=== PATIENT | male | born 1965 | race Caucasian/White ===

== ENCOUNTER 2018-09-23 14:07 | Observation (INO) | payer BC ==
[2018-09-23] VITALS (8 sets, daily range): BP systolic 120–143; BP diastolic 66–85; Ht 185.4 cm; Wt 114.7 kg
[~2018-09-23] VITALS: Ht 185.4 cm; Wt 114.7 kg
--- NOTE | ~2018-09-23 | MORECARE ---
CASE MANAGEMENT DISCHARGE SUMMARY PATIENT: ALONZO JERNIGAN UNIT: [id number] ADM DATE: 09/23/18 AGE: 53 : 65 SEX: M ROOM/BED: D.2116 AUTHOR: MOISÉS WU PHYSICIAN: REFERRING PHYSICIAN: RICKEY ROTHMAN M.D. DATE OF SERVICE: 09/27/18 Discharge Plan Patient Name: ALONZO JERNIGAN Facility: [facility]:[place] : 1965 Planned Disposition: Home Anticipated Discharge Date: 09/24/18 Discharge Date: 09/24/2018 Expected LOS: 1 Initial Reviewer: [email or web address] Initial Review Date: 09/27/2018 Generated: 09/27/18 9:28 am Patient Name: ALONZO JERNIGAN Page 26936 at 0829 All edits/amendments must be made on the electronic document DICTATION DATE: 09/27/18827 ARCHITECTURE INTERNSHIP: JULIANE 09/27/18827 RPT#: [id number] DC DATE:09/24/18 STATUS: DIS IN [facility] [address] [facility] [place] [address] END OF REPORT
[2018-09-23] MEDS ORDERED: NORVASC10 MG PO (14:13)
[2018-09-23] MEDS ORDERED: LEXAPRO10 MG PO (14:14)
[2018-09-23 14:57] LABS: BASOPHILS 0.8 % (0-2); EOSINOPHILS 6.5 % (0-7); HEMATOCRIT 38.5 % (42.0-54.0); HEMOGLOBIN 12.6 g/dL (13.5-17.5); IMMATURE GRANULOCYTES 0.2 % (0-5); LYMPHOCYTES 24.5 % (15-50); MCH 28.4 pg (26.0-34.0); MCHC 32.7 g/dL (31.0-37.0); MCV 86.9 fL (80.0-100.0); MEAN PLATELET VOLUME 10.5 fL (7.4-10.4); MONOCYTES 5.9 % (2-11); NEUTROPHILS 62.1 % (40-80); PLATELET COUNT 240 10x3/uL (130-400); RBC 4.43 10x6/uL (4.20-6.10); WBC 6.4 10x3/uL (4.8-10.8)
[2018-09-23 15:13] LABS: APTT 26.6 SECONDS (22.8-39.4); INR 1.01 (0.85-1.17)
[2018-09-23 15:20] LABS: ALBUMIN 3.6 g/dL (3.4-5.0); ALKALINE PHOSPHATASE 72 U/L (46-116); ALT (SGPT) 58 U/L (10-68); BILIRUBIN - TOTAL 0.23 mg/dL (0.2-1.3); CALC OSMOLALITY 280 mosm/kg (275-300); CALCIUM 8.8 mg/dL (8.5-10.1); CARBON DIOXIDE 26.2 mmol/L (21.0-32.0); CHLORIDE - SERUM 104 mmol/L (98-107); CREATININE - SERUM 1.1 mg/dL (0.6-1.3); GLUCOSE 142 mg/dL (74-106); POTASSIUM - SERUM 3.7 mmol/L (3.5-5.1); PROTEIN - SERUM 7.8 g/dL (6.4-8.2); SODIUM 139 mmol/L (136-145); UREA NITROGEN 14 mg/dL (7-18); eGFR NON AFRICAN AMERICAN 74 mL/min (90-120)
[2018-09-23 15:36] LABS: CKMB 1.5 U/L (0.0-3.6); CREATINE KINASE 238 UL (21-232); MAGNESIUM - SERUM 2.2 mg/dL (1.8-2.4)
[2018-09-23 15:37] LABS: TROPONIN-I < 0.017 ng/mL (0.000-0.060)
[2018-09-23] MEDS ORDERED: FLUTICASONE PRO16 GM NASAL (20:07)
[2018-09-23] MEDS ORDERED: OMEPRAZOLE20 M1 PO (20:14)
[2018-09-24 00:57] VITALS: BP 122/73
[2018-09-24 05:39] VITALS: BP 120/74
[2018-09-24 09:00] VITALS: BP 123/73
== END 2018-09-24 10:30 | disposition home or self-care (01) ==
LOC: D.ER 14:07 → D.EDHOLD 17:54 → OBSVTIME 17:54 → D.ER 18:13 → D.M2 18:17
PROVIDERS: Family Medicine
DX: I25.110 Atherosclerotic heart disease of native coronary artery with unstable angina pectoris (principal); I10 Essential (primary) hypertension; Z95.5 Presence of coronary angioplasty implant and graft

== ENCOUNTER 2018-09-26 11:29 | Outpatient (CLI) | payer BC ==
[~2018-09-26] VITALS: Ht 185.4 cm; Wt 113.6 kg
--- NOTE | ~2018-09-26 | HEMODYNAMI ---
PATIENT:ALONZO JERNIGAN MEDICAL RECORD: [id number] : 65 LOCATION:[facility] ADMISSION DATE: 09/26/18 Generatedon:09/26/201815:23 Patient name: ALONZO JERNIGAN Patient #: [id number] SSN: D OB: 1965 Date of study: 09/26/2018 Page: Of Hemodynamic Procedure Report Patient Data Patient Demographics Procedure consent was obtained First Name: ALONZO Gender: Male Last Name: DELON : 1965 Middle Initial: R Age: 53 year(s) Patient #: [id number] Race: Unknown Additional ID: [id number] Contact details Address: [address] State: [place] City: [facility] Zip code: [address] Past Medical History Allergies Allergen Reaction Date Comments Reported Other allergy 09/26/2018 LISINOPRIL Admission Admission Data Admission Date: 09/26/2018 Admission Time: 11:29 Lab Results Lab Result Date: 09/26/2018 Lab Result Time: 0:00 Biochemistry Name Units Result Min Max BUN mg/dl 11 --(-*--)-- 7 18 Creatinine mg/dl 1.1 --(--*-)-- 0.6 1.3 CBC Name Units Result Min Max Hemoglobin g/dl 13.3 -*(----)-- 13.5 17.5 Procedure Procedure Types Cath Procedure Diagnostic Procedure [facility] w/Coronaries Sedation Charges Moderate Sedation up to 30 minutes PCI Procedure Coronary Stent Coronary Stent Initial Procedure Description Procedure Date Procedure Date: 09/26/2018 Procedure Start Time: 14:37 Procedure End Time: 15:22 Procedure Staff Name Function Antelmo Lucia MD Performing Physician Nolvia Scherer RT Monitor Peyman Garcia RT Scrub Louise Grullon RN Nurse Procedure Data Cath Procedure Fluoroscopy Diagnostic fluoroscopy Total fluoroscopy Time: time: 10.1 min 10.1 min Diagnostic fluoroscopy Total fluoroscopy dose: dose: 1548 mGy 1548 mGy Contrast Material Contrast Material Type Amount (ml) Isovue 300 136 Entry Location Entry Primary Successful Side Size Upsize Upsize Entry Closure Agustin ccessful Closure Location (Fr) 1 (Fr) 2 (Fr) Remarks Device Remarks Radial Right 6 Fr Mechanical artery Short Compression Femoral Right 5 Fr 6 Fr Exoseal artery Short Estimated blood loss: 10 ml Diagnostic catheters Device Type Used For End Catheter Placement DIAGNOSTIC Alli 110cm Procedure 5Fr catheter (639381) DIAGNOSTIC [place] 110cm 5 Procedure Fr catheter (794206) MULTIPACK JL 4.0 5Fr Procedure catheter MULTIPACK 3DRC 5Fr Procedure catheter Procedure Complications No complications Procedure Medications Medication Administration Route Dosage 0.9% NaCl I.V. 100 ml/hr Oxygen etCO2 Nasal cannula 2 l/min Lidocaine 2% added to field 20 Heparin Flush Bag added to field 2 bags (1000units/500ml NS) Radial Cocktail added to field 1 syringe (Verapomil 2mg/Nitro 400mcg/Heparin 1500units) Versed I.V. 2 mg Fentanyl I.V. 100 mcg Versed I.V. 2 mg Heparin Bolus I.V. 79552 units Plavix P.O. 600 mg Hemodynamics Rest HGB: 13.3 (g/dl) Heart Rate: 65 (bpm) Pressure Samples Time Site Value (mmHg) Purpose Heart Use Rate(bpm) 14:44 LV 111/17,47 Snapshot 69 14:45 AO 112/68(87) Pullback 61 14:45 LV 138/-7,42 Pullback 61 Gradients Valve Time Site 1 Site 2 Mean SEP/DFP Peak To Heart Use (mmHg) (sec/min) Peak Rate (mmHg) (bpm) Aortic 14:45 LV AO 16 11 26 61 138/-7,42 112/68(87) Calculations Valve P-P Mean Valve Index Valve Source Name Gradient Area Flow (cm2) Aortic 26 16 26 16 Snapshots Pre Cath Intra NCS Post Cath Vital Signs Time Heart Resp SPO2 NIBP (mmHg) Rhythm Pain Sedation Rate (ipm) (%) Status Level (bpm) 14:11:49 64 20 97 129/81(100) NSR 0 (11) 10(A) , No pain 14:16:15 63 11 97 112/74(90) NSR 0 (11) 10(A) , No pain 14:20:33 60 11 98 109/76(90) NSR 0 (11) 10(A) , No pain 14:24:51 61 14 96 125/72(103) NSR 0 (11) 10(A) , No pain 14:29:07 63 18 96 114/75(89) NSR 0 (11) 10(A) , No pain 14:33:27 60 15 96 124/69(103) NSR 0 (11) 10(A) , No pain 14:37:43 65 11 98 113/79(93) NSR 0 (11) 10(A) , No pain 14:42:04 59 10 97 108/69(87) NSR 0 (11) 9(A) , No pain 14:46:20 61 11 98 119/78(97) NSR 0 (11) 9(A) , No pain 14:50:30 64 10 96 122/88(103) NSR 0 (11) 9(A) , No pain 14:54:48 61 11 97 115/74(108) NSR 0 (11) 9(A) , No pain 14:59:04 70 10 96 131/86(111) NSR 0 (11) 9(A) , No pain 15:04:21 62 16 97 124/76(101) NSR 0 (11) 9(A) , No pain 15:08:41 63 12 98 134/81(111) NSR 0 (11) 9(A) , No pain 15:12:57 76 14 95 117/81(97) NSR 0 (11) 9(A) , No pain 15:17:19 67 18 96 127/73(92) NSR 0 (11) 10(A) , No pain 15:21:46 75 11 95 127/82(109) NSR 0 (11) 10(A) , No pain Medications Time Medication Route Dose Verified Delivered Reason Not es Effectiveness by by 14:10:46 0.9% NaCl I.V. 100 Antelmo Louise used for ml/hr Khari Grullon saw man 14:10:54 Oxygen etCO2 2 l/min Antelmo Louise used for Nasal Khari Grullon procedure cannula RN 14:11:00 Lidocaine 2% added 20ml Antelmo Antelmo for local to vial Khari Lucia MD anesthetic field 14:11:05 Heparin Flush added 2 bags Antelmo Antelmo used for Bag to Khari Lucia MD procedure (1000units/500ml field NS) 14:11:21 Radial Cocktail added 1 Antelmo Antelmo used for (Verapomil to syringe Khari Lucia MD procedure 2mg/Nitro field 400mcg/Heparin 1500units) 14:35:32 Versed I.V. 2 mg Antelmo Louise for sedation Khari Grullon RN 14:35:44 Fentanyl I.V. 100 mcg Antelmo Louise for sedation Khari Grullon RN 14:41:00 Versed I.V. 2 mg Antelmo Louise for sedation Khari Grullon RN 15:09:20 Heparin Bolus I.V. 92749 Antelmo Louise for brooke ified units Khari Grullon anticoagulation with Dr. LINDSAY Lucia 15:15:36 Plavix P.O. 600 mg Antelmo Louise for Khari Grullon antiplatelet RN therapy Procedure Log Time Note 13:31:04 Time tracking: Regular hours (M-F 7:00 - 5:00) 13:31:08 Plan of Care:Hemodynamics will remain stable., Cardiac rhythm will remain stable., Comfort level will be maintained., Respiratory function will remain adequate., Patient/ family verbilizes understanding of procedure., Procedure tolerated without complication., Recovers from procedure without complications.. 13:31:10 Signed procedure consent form obtained from patient. 13:31:14 Diagnostic Cath status Elective 13:48:22 Lab Result : BUN 11 mg/dl 13:48:22 Lab Result : Creatinine 1.1 mg/dl 13:48:22 Lab Result : Hemoglobin 13.3 g/dl 13:55:43 Louise Grullon RN sent for patient. Start room use. 13:58:20 Patient allergic to Other allergyLISINOPRIL 14:02:46 Patient received from Pre/Post Procedure Room to CCL 1 Alert and oriented. Tansferred to table in Supine position. 14:02:48 Warm blankets applied, and emily hugger turned on for patient comfort. 14:02:48 Correct patient and procedure confirmed by team. 14:02:50 ECG and BP/O2 sat monitors applied to patient. 14:10:32 Vital chart was started 14:10:46 0.9% NaCl 100 ml/hr I.V. was administered by Louise Grullon RN; used for procedure; 14:10:54 Oxygen 2 l/min etCO2 Nasal cannula was administered by Louise Grullon RN; used for procedure; 14:11:00 Lidocaine 2% 20ml vial added to field was administered by Antelmo Lucia MD; for local anesthetic; 14:11:05 Heparin Flush Bag (1000units/500ml NS) 2 bags added to field was administered by Antelmo Lucia MD; used for procedure; 14:11:21 Radial Cocktail (Verapomil 2mg/Nitro 400mcg/Heparin 1500units) 1 syringe added to field was administered by Antelmo Lucia MD; used for procedure; 14:13:35 Baseline sample Acquired. 14:13:39 Rhythm: sinus rhythm 14:16:41 etCO2 monitor malfunction, PENNY etCO2 at this time 14:18:20 Full Disclosure recording started 14:18:26 H&P Date Dictated: 09/26/2018 Within 30 days and on chart., H&P Addendum completed by physician on day of procedure. (MUST COMPLETE FOR ALL OUTPATIENTS). 14:18:27 Pre-procedure instructions explained to patient. 14:18:27 Pre-op teaching completed and patient verbalized understanding. 14:18:28 Family in patients room. 14:18:30 Patient NPO since Midnight. 14:18:34 Is patient on blood thinner?No 14:18:40 Patient diabetic? No. 14:18:42 Previous problem with sedation/anesthesia? No ? 14:18:43 Snore? Yes 14:18:45 Sleep apnea? No 14:18:46 Deviated septum? No 14:18:46 Opens mouth fully? Yes 14:18:47 Sticks out tongue? Yes 14:18:49 Airway obstruction? No ? 14:18:51 Dentures? No ? 14:19:54 Modified Nato's test Ulnar < 7 seconds 14:19:57 Patient pain scale 0/10 ?. 14:20:03 IV patent on arrival in left wrist with 0.9% NaCl at [facility]. 14:20:05 Lab results completed and on chart. 14:20:07 Right Radial & Right Groin area was prepped with chlora-prep and draped in sterile fashion 14:20:09 Alarms reviewed by R. N. 14:20:09 Sharps counted by scrub and verified by R.N. 14:20:12 Use device set Radial Dx or PCI 14:20:13 ACIST Syringe (00450) opened to sterile field. 14:20:14 Bag Decanter (2002S) opened to sterile field. 14:20:15 ACIST Hand Control (35124) opened to sterile field. 14:20:15 ACIST Manifold (02457) opened to sterile field. 14:20:16 Tegaderm 4 x 4 (1626W) opened to sterile field. 14:20:17 Medline Cath Pack (TXUD51266) opened to sterile field. 14:20:18 DIAGNOSTIC WIRE .035 260cm J wire (600337) opened to sterile field. 14:20:18 MBrace Wrist Support ([id number]) opened to sterile field. 14:20:20 SHEATH 6FR Slender ([id number]) opened to sterile field. 14:20:29 NEEDLE Cook 21G 4cm Radial (U54427) opened to sterile field. 14:23:51 Zero performed for pressure channel P1 14:26:24 Zero performed for pressure channel P1 14:34:37 --------ALL STOP TIME OUT------ 14:34:38 Final Timeout: patient, procedure, and site verified with staff and physician. All members of the team are in agreement. 14:35:14 Right Radial & Right Groin site verified by team. 14:35:17 Physical assessment completed. ASA score P 2 - A patient with mild systemic disease as per Antelmo Lucia MD. 14:35:20 Sedation plan: IV Moderate Sedation Medication:Versed, Fentanyl 14:35:32 Versed 2 mg I.V. was administered by Louise Grullon RN; for sedation; 14:35:44 Fentanyl 100 mcg I.V. was administered by Louise Grullon RN; for sedation; 14:37:09 Procedure started. 14:37:34 Local anesthetic to right radial artery with Lidocaine 2% by Antelmo Lucia MD.INITIAL ACCESS ONLY 14:40:08 A 6 Fr Short sheath was inserted into the Right Radial artery 14:40:51 A DIAGNOSTIC Alli 110cm 5Fr catheter (946184) was advanced over the wire and used for Procedure. 14:41:00 Versed 2 mg I.V. was administered by Louise Grullon RN; for sedation; 14:45:17 LV gram done using QURESHI 14:45:19 Injector settings: Ml/sec: 7, Volume: 15, 14:45:21 LV hemodynamics recorded. 14:45:25 EF : 55 % 14:45:33 Catheter exchanged over wire. 14:45:58 A DIAGNOSTIC [place] 110cm 5 Fr catheter (301115) was advanced over the wire and used for Procedure. 14:47:34 RCA angiography performed. 14:48:44 UNABLE TO ENGAGE. WILL GO GROIN 14:48:53 Catheter removed. 14:49:44 SHEATH 5FR Lisle (FOU507) opened to sterile field. 14:50:11 Local anesthetic to right femoral artery with Lidocaine 2% by Antelmo Lucia MD.ADDITIONAL ACCESS 14:52:58 A 5 Fr sheath was inserted into the Right Femoral artery 14:53:53 Use device set Multipack Set 14:53:55 DIAGNOSTIC Multipack 5Fr catheter set (TI8031) opened to sterile field. 14:53:58 A MULTIPACK JL 4.0 5Fr catheter was advanced over the wire and used for Procedure. 14:55:20 LCA angiography performed. 14:57:17 Catheter exchanged over wire. 14:57:56 A MULTIPACK 3DRC 5Fr catheter was advanced over the wire and used for Procedure. 14:58:56 RCA angiography performed. 15:00:33 Catheter removed. 15:04:30 SHEATH 6FR Lisle (SOR640) opened to sterile field. 15:04:38 Sheath upsized to a 6 Fr Short. 15:04:49 BMW 300cm Straight [place]okomis 2 wire (0051275) opened to sterile field. 15:04:53 INFLATOR Merit BasixCompak (SK3265) opened to sterile field. 15:04:58 TUBING High Pressure Extension Tubing (Khari) (BC2038A) opened to sterile field. 15:05:14 GUIDE 6FR 3DRC catheter (NL85YEH) opened to sterile field. 15:05:26 6 Fr 3DRC guide catheter was inserted over the wire 15:08:25 BMW 300 wire advanced. 15:08:41 Wire advanced across lesion. 15:09:20 Heparin Bolus 79640 units I.V. was administered by Louise Grullon RN; for anticoagulation; verified with Dr. Lucia 15:12:36 Place stent Inflation Number: 1 A INTEGRITY OTW 3.5 X 12 stent ([id number]) was prepped and advanced across the Prox RCA. The stent was deployed at 16 JANETH for 0:10 (min:sec). 15:13:30 Stent catheter was removed intact over wire. 15:13:31 Wire removed. 15:13:32 Guide catheter removed. 15:14:14 EXOSEAL 6Fr (EX600) opened to sterile field. 15:14:29 Sheath removed intact; hemostasis achieved with Exoseal to the Right Femoral artery. 15:14:51 TR BAND Standard (AUU02IVF) opened to sterile field. 15:15:00 Procedure ended.(Physican Out) 15:15:36 Plavix 600 mg P.O. was administered by Louise Grullon RN; for antiplatelet therapy; 15:16:04 Sheath removed intact; hemostasis achieved with Mechanical Compression to the Right Radial artery. 15:16:21 Fluoroscopy time 10.10 minutes. 15:16:25 Fluoroscopy dose: 1548 mGy 15:16:25 Flurop Dose total: 1548 15:16:29 Contrast amount:Isovue 300 136ml. 15:16:30 Sharps counted by scrub and verified by R.N. 15:17:23 Post-op/insertion site Right Femoral artery dressed using a 4 x 4 and Tegaderm. 15:17:27 Post right femoral artery:stable, soft, clean and dry 15:17:30 TR band inflated with 10cc of air. 15:17:33 Insertion/operative site no bleeding no hematoma. 15:20:14 Post-procedure physical assessment completed. ASA score P 2 - A patient with mild systemic disease as per Antelmo Lucia MD. 15:20:17 Post procedure rhythm: sinus rhythm 15:20:19 Estimated blood loss: 10 ml 15:20:20 Post procedure instruction explained to patient.Patient verbalizes understanding. 15:20:21 Patient needs reinforcement of post procedure teaching. 15:20:48 Procedure type changed to Cath procedure, Diagnostic procedure, LHC, LHC w/Coronaries, Sedation Charges, Moderate Sedation up to 30 minutes, PCI procedure, Coronary Stent, Coronary Stent Initial 15:21:52 Procedure and supply charges have been captured, reviewed, submitted and are correct. 15:21:54 Procedure Complication : No complications 15:21:56 Vital chart was stopped 15:21:56 See physician's report for complete and final results. 15:21:58 Report given to Pre/Post Procedure Room. 15:22:02 Patient transfered to Pre/Post Procedure Room with Bed. 15:22:03 Procedure ended. 15:22:03 Full Disclosure recording stopped 15:22:07 End room use (Document Last) Intervention Summary Intervention Notes Time ActionType Lesion and Equipment Action# Pressure Duration Attributes Used 15:12:36 Place stent Prox RCA INTEGRITY 1 16 00:10 OTW 3.5 X 12 stent ([id number]) Device Usage Item Name Manufacture Quantity Catalog Hospital Part Current Minima l Lot# / Number Charge Number Stock Stock Serial# Code ACIST Acist 1 82023 399949 983426 019861 20 Syringe Medical (81752) Systems Inc Bag Decanter Microtek 1 2001S 154153 80606 166853 5 (2001S) Medical Inc. ACIST Hand Acist 1 67691 164717 874323 600454 5 Control Medical (70960) Systems Inc ACIST Acist 1 57731 176230 635927 316579 5 Manifold Medical (37407) Systems Inc Tegaderm 4 x 3M 1 1626W 839073 160653 217817 5 4 (1626W) Medline Cath Medline 1 [id number] 583020 57679 358343 5 Pack (AXFD10624) DIAGNOSTIC St Ryan 1 182149 721718 400237 069877 30 WIRE .035 260cm J wire (790475) MBrace Wrist Advanced 1 140-0250-00 007884 53652 070566 5 Support Vascular (328598170) Dynamics SHEATH 6FR Terumo 1 [id number] 154783 828265 262966 40 Slender (CNHX5M38RA) NEEDLE Project 10K Medical 1 Q34077 558116 471543 328545 5 21G 4cm Radial (Z34722) DIAGNOSTIC Terumo 1 40-5023 761554 953110 738344 5 Alli 110cm 5Fr catheter (583570) DIAGNOSTIC Terumo 1 40-5013 587096 315633 310445 5 [place] 110cm 5 Fr catheter (427338) SHEATH 5FR Terumo 1 MLC291 056314 520839 277930 40 Lisle (DFG201) DIAGNOSTIC Cardinal 1 HK7275 212759 14482 841259 30 Multipack Health 5Fr catheter set (XD5123) MULTIPACK JL Cardinal 1 363025 5 4.0 5Fr Health catheter MULTIPACK Cardinal 1 764644 5 3DRC 5Fr Health catheter SHEATH 6FR Terumo 1 KCH148 994957 918609 517430 40 Lisle (DRY017) BMW 300cm Lama 1 0915178 662987 546782 956303 5 Straight Vascular Nokomis 2 wire (1958076) INFLATOR Merit 1 ZW9427 834127 470548 070846 15 Merit Medical BasixCompak (GV6094) TUBING High Merit 1 DT5267O 158088 34862 998304 10 Pressure Medical Extension Tubing (Lucia) (BN9533P) GUIDE 6FR Medtronic 1 QA42WSN 847248 439202 637710 1 3DRC catheter (KR83PYD) INTEGRITY Medtronic 1 [id number] 620353 216898 7 [id number] OTW 3.5 X 12 stent ([id number]) EXOSEAL 6Fr Cardinal 1 EX600 945597 032620 972307 10 (EX600) Health TR BAND Terumo 1 QCR21-SAH 863002 169852 180965 40 Standard (YDP52UAW) Signature Audit [place] Stage Time Signature Unsigned Intra-Procedure 09/26/2018 Nolvia Scherer 3:23:27 PM RT(R) Signatures Monitor : Nolvia Scherer Signature : RT Date : Time : [facility] [address] [place] [address]
[~2018-09-26 11:29] MED LIST: FLUTICASONE PRO16 GM NASAL; LEXAPRO10 MG PO; NORVASC10 MG PO; OMEPRAZOLE20 M1 PO
[2018-09-26 12:21] VITALS: BP 124/73; Ht 185.4 cm; Wt 113.6 kg
[2018-09-26 12:38] LABS: CALCIUM 8.5 mg/dL (8.5-10.1); CARBON DIOXIDE 27.8 mmol/L (21.0-32.0); CREATININE - SERUM 1.1 mg/dL (0.6-1.3); POTASSIUM - SERUM 3.8 mmol/L (3.5-5.1)
[2018-09-26 12:41] LABS: EOSINOPHILS 6.3 % (0-7); HEMATOCRIT 39.9 % (42.0-54.0); HEMOGLOBIN 13.3 g/dL (13.5-17.5); IMMATURE GRANULOCYTES 0.1 % (0-5); LYMPHOCYTES 30.5 % (15-50); MCH 28.6 pg (26.0-34.0); MCHC 33.3 g/dL (31.0-37.0); MCV 85.8 fL (80.0-100.0); MEAN PLATELET VOLUME 10.3 fL (7.4-10.4); MONOCYTES 9.4 % (2-11); NEUTROPHILS 52.7 % (40-80); PLATELET COUNT 253 10x3/uL (130-400); RBC 4.65 10x6/uL (4.20-6.10); RDW 13.9 % (11.5-14.5); WBC 6.8 10x3/uL (4.8-10.8)
[2018-09-26] MEDS ORDERED: BAYER CHEWABLE81 MG PO (15:29)
[2018-09-26] MEDS ORDERED: PLAVIX75 MG PO (15:29)
== END 2018-09-26 19:35 | disposition home or self-care (01) ==
LOC: D.CATH 11:29
PROVIDERS: Internal Medicine Cardiovascular Disease
DX: I25.119 Atherosclerotic heart disease of native coronary artery with unspecified angina pectoris (principal)

== ENCOUNTER → 2019-04-19 09:14 | Outpatient (CLI) | payer BC ==
[2018-09-26 12:21] VITALS: BMI 33.0
[~2019-04-19 09:14] MED LIST changes: +BAYER CHEWABLE81 MG PO; +PLAVIX75 MG PO
--- NOTE | 2019-04-21 09:40 | ST ---
PATIENT:ALONZO JERNIGAN MEDICAL RECORD: [id number] SEX: M LOCATION:[facility] ORDER #: ADMISSION DATE: 04/19/19 AGE OF PATIENT: 53 REFERRING PHYSICIAN: INTERPRETING PHYSICIAN: HEATHER SAMUELS MD DATE OF SERVICE: 04/19/2019 PROCEDURE: Nuclear stress test. INDICATIONS: Angina, coronary artery disease, hypertension, and shortness of breath. He was exercised on standard Lexiscan protocol with 31 mCi of sestamibi injected at peak stress, 10 mCi were used previously for rest images. FINDINGS: Gated SPECT reveals preserved ejection fraction at 58% with good wall motion and thickening and brightening throughout all segments. SPECT imaging Cardiolite was used as myocardial perfusion agent. There is homogeneous uptake throughout all segments at rest and stress with no evidence of inducible ischemia or previous infarction. OVERALL IMPRESSION: 1. This is a normal nuclear stress test with no evidence of inducible ischemia or previous infarction. 2. Gated SPECT reveals a preserved ejection fraction at 58%. In this patient with ongoing symptomatology, the current scan does not suggest the presence of hemodynamically significant coronary artery disease. Evaluate noncardiac etiology of chest pain. TRANSINT:[id number] Voice Confirmation ID: [id number] DOCUMENT ID: [id number] HEATHER SAMUELS MD at 0940 CC: TONY SELLERS MD [id number] DICTATION DATE: 04/19/19 1611 JOURNEYMAN LEVEL ACOUSTIC ANALYST: 04/20/19 1013 DEP CLI 04/19/19 [address] [place] [address]
== END | disposition home or self-care (01) ==
LOC: D.HCCARDIO 09:14
PROVIDERS: ATTEND Internal Medicine Cardiovascular Disease
DX: I25.119 Atherosclerotic heart disease of native coronary artery with unspecified angina pectoris (principal)

== ENCOUNTER 2019-10-08 15:24 | Observation (INO) | payer SELFPAY ==
[~2019-10-08] VITALS: Ht 185.4 cm; Wt 104.3 kg
--- NOTE | ~2019-10-08 | CN ---
PATIENT NAME:ALONZO JERNIGAN MEDICAL RECORD: [id number] : 65 LOCATION:D. D.2112 ADMIT DATE: 10/08/19 ACCOUNT: [id number] CONSULTING PHYSICIAN: HEATHER SAMUELS MD REFERRING PHYSICIAN: LATESHA HENNING MD DATE OF CONSULTATION: 10/09/2019 DIAGNOSES: 1. Coronary artery disease. 2. Non-Q-wave myocardial infarction. 3. Hypertension. 4. Hyperlipidemia. HISTORY OF PRESENT ILLNESS: This is a gentleman with a past history of coronary artery disease, previous cardiac stents, who for the past 2 weeks has had increasing episodes of chest pain, chest discomfort compatible with angina, had severe episodes yesterday while cleaning his gutter. His troponin is positive for non-Q-wave myocardial infarction, heart rates in the 50s; systolic blood pressures in the 120s. He is currently pain free. His EKG is with no acute ST-T abnormalities. PHYSICAL EXAMINATION: CONSTITUTIONAL/GENERAL APPEARANCE: Well nourished, well developed, appears stated age. EYES: Lids and conjunctivae noninjected. No discharge. No pallor. ENT: Lips within normal limit. No cyanosis. No pallor. NECK: Carotid arteries, bilateral normal upstroke. No bruits. No thrills. No jugular venous pressure or distention. CERVICAL LYMPH NODES: Nontender. Nonenlarged. THYROID: Not enlarged. No nodules. CARDIOVASCULAR: Precordial exam, nondisplaced. No heaves or pericardial thrills. Rate and rhythm, regular. Heart sounds, normal S1, normal S2. No S3, no gallop, no rub. Systolic murmur, not heard. Diastolic murmur, not heard. RESPIRATORY: Respiratory effort, unlabored. Normal curvature. No thoracic deformity. No chest wall tenderness. Percussion, resonant. Auscultation, clear. No wheezes, no rales, no rhonchi. ABDOMEN: Soft, nondistended, nontender. No abdominal pain, no vomiting and normal appetite. MUSCULOSKELETAL: No joint tenderness, normal gait, normal tone. SKIN: Warm and dry. OVERALL IMPRESSION: Non-Q-wave myocardial infarction with progressive angina. We will proceed with coronary angiography. Further care depends upon findings of the angiography. TRANSINT:[id number] Voice Confirmation ID: [id number] DOCUMENT ID: [id number] CONSULT REPORT [id number] ALONZO JERNIGAN, HEATHER MILLER CC: [id number] DICTATION DATE: 10/09/1947 COMPENSATION SUPERVISOR: 10/09/19920 ADM IN [place] [address] [place] [id number]
--- NOTE | ~2019-10-08 | EC ---
PATIENT:ALONZO JERNIGAN DATE OF SERVICE: 10/08/19 SEX: M MEDICAL RECORD: [id number] DATE OF : 65 LOCATION:D.M2 D.211 AGE OF PATIENT: 54 ADMISSION DATE: 10/08/19 REFERRING PHYSICIAN: INTERPRETING PHYSICIAN: HEATHER VIRGEN MD ECHOCARDIOGRAM REPORT ECHO CHARGES 4 ECHO COMPLETE Date: 10/09/19 CLINICAL DIAGNOSIS: AR ECHOCARDIOGRAPHIC MEASUREMENTS (adult normal given) AC root (d.<3.7cm) 2.7 cm LV Septum d (<1.2 cm> 0.9 cm Valve Excursion 1.8 cm LV Septum (systole) 1.6 cm Left Atria (s.<4.0cm> 4.3 cm LVPW d(<1.2cm) 1.1 cm RV (d.<2.3cm) 3.5 cm LVPW (sytole) 1.2 cm LV diastole(<5.6CM) 5.2 cm MV E-F(>70mm/sec) cm LV systole 4.3 cm LVOT Diameter 2.0 cm MV exc.(>10mm) cm Est.ejection fraction (50-75%) % DOPPLER: LVIT cm/sec A 62 cm/sec E 88 cm/sec LA cm/sec RVSP 33.8 mmHg LVOT 116 cm/sec AOP1/2T m/s Asc. Ao 203 cm/sec RVOT 89 cm/sec RA cm/sec PA 122 cm/sec AV Gradient Peak 16.4 mmHg AV Mean 9.3 mmHg AV Area 1.7 cm MV Gradient Peak 3.5 mmHg MV Mean 1.3 mmHg MV Area cm COMMENTS: Head Of Maintenance: Ruby [facility] Door Clamper: 1 Dr. Virgen TAPE# PACS Pericardial Effusion N DATE OF SERVICE: 10/09/2019 FINDINGS: 1. Left ventricular chamber size is within normal limits. Left ventricular systolic function is normal. Overall ejection fraction estimated at 55%. 2. Left atrium is enlarged at 4.3 cm. Right atrium and right ventricular chamber sizes are as well mildly dilated. 3. Valvular structures have normal structure and motion. 4. Doppler interrogation reveals mild tricuspid regurgitation, no other valvular insufficiency or stenosis. Pulmonary systolic pressure is normal ECHOCARDIOGRAM REPORT [id number] ALONZO JERNIGAN estimated at 34 mmHg. 5. No evidence of pericardial effusion or left ventricular thrombus. TRANSINT:[id number] Voice Confirmation ID: [id number] DOCUMENT ID: [id number] HEATHER VIRGEN MD CC: [id number] DICTATION DATE: 10/09/191736 CLIENT TECHNOLOGIES ANALYST: 10/09/19 1831 ADM IN [facility] [address] [place] [address]
--- NOTE | ~2019-10-08 | HEMODYNAMI ---
PATIENT:ALONZO JERNIGAN MEDICAL RECORD: [id number] : 65 [id number] ADMISSION DATE: 10/08/19 Generatedon:10/09/201917:26 Patient name: ALONZO JERNIGAN Patient #: [id number] SSN: [id number] : 1965 Date of study: 10/09/2019 Page: Of Hemodynamic Procedure Report Patient Data Patient Demographics Procedure consent was obtained First Name: ALONZO Gender: Male Last Name: DELON : 1965 Middle Initial: R Age: 54 year(s) Patient #: [id number] Race: SSN: [id number] Additional ID: [id number] Contact details Address: [address] State: [place] City: [facility] Zip code: [address] Past Medical History History of disease Date Diagnosis Comments CAD Allergies Allergen Reaction Date Comments Reported Other allergy 09/26/2018 LISINOPRIL Other allergy 10/09/2019 Lisinopril Admission Admission Data Admission Date: 10/08/2019 Admission Time: 17:58 Arrival Date: 10/09/2019 Arrival Time: 0:00 Admit Source: Other Insurance Payor: Private Room #: D.2112 health insurance Height (in.): 73 BSA: 26.07 (m2) Height (cm.): 185.42 BMI: 9337.83 (kg/m2) Weight (lbs.): 56603.57 Weight (kg.): 98845 Lab Results Lab Result Date: 10/09/2019 Lab Result Time: 0:00 Biochemistry Name Units Result Min Max BUN mg/dl 14 --(--*-)-- 7 18 CK-MB ng/ml 2.7 --(---*)-- 0 3.6 Creatinine mg/dl 1 --(--*-)-- 0.6 1.3 eGFR ml/min 82.55781 -*(----)-- 90 120 NONAFRICAN Troponin l ng/ml 0.508 --(----)-* 0 0.06 CBC Name Units Result Min Max Hematocrit % 36.9 *-(----)-- 42 54 Hemoglobin g/dl 11.5 *-(----)-- 13.5 17.5 Procedure Procedure Types Cath Procedure Diagnostic Procedure [facility] w/Coronaries FFR/IVUS FFR Initial FFR Additional PCI Procedure Coronary Stent Coronary Stent Initial Hemochron ACT Test Procedure Description Procedure Date Procedure Date: 10/09/2019 Procedure Start Time: 17:06 Procedure End Time: 17:25 Procedure Staff Name Function Barry Virgen MD Performing Physician Nolvia Scherer RT Monitor Karol Benson RT Monitor Irene Gill RT Scrub Morales Joseph RN Nurse Indication CAD Procedure Data Cath Procedure Fluoroscopy Diagnostic fluoroscopy Total fluoroscopy Time: 3.8 time: 3.8 min min Diagnostic fluoroscopy Total fluoroscopy dose: 933 dose: 933 mGy mGy Contrast Material Contrast Material Type Amount (ml) Isovue 370 110 Entry Location Entry Primary Successful Side Size Upsize Upsize Entry Closure Succes sful Closure Location (Fr) 1 (Fr) 2 (Fr) Remarks Device Remarks Femoral Right 5 Fr Exoseal artery Estimated blood loss: 10 ml Diagnostic catheters Device Type Used For End Catheter Placement MULTIPACK Pigtail 5 Fr Procedure catheter MULTIPACK JL 4.0 5Fr Procedure catheter MULTIPACK 3DRC 5Fr Procedure catheter Procedure Complications No complications Procedure Medications Medication Administration Route Dosage 0.9% NaCl I.V. 100 ml/hr Oxygen etCO2 Nasal cannula 2 l/min Heparin Flush Bag added to field 2 bags (1000units/500ml NS) Lidocaine 2% added to field 20 Versed I.V. 2 mg Fentanyl I.V. 50 mcg Versed I.V. 2 mg Fentanyl I.V. 50 mcg Versed I.V. 2 mg Heparin Bolus I.V. 4000 units Hemodynamics Rest BSA: 26.07 (m2) HGB: 11.5 (g/dl) O2 Consumption: Estimated: 3055.37 (ml/min) O2 Consumption indexed: Estimated:117.2 (ml/min/m) Heart Rate: 66 (bpm) Snapshots Pre Cath Intra NCS Post Cath Vital Signs Time Heart Resp SPO2 etCO2 NIBP (mmHg) Rhythm Pain Sedation Rate (ipm) (%) (mmHg) Status Level (bpm) 16:41:13 73 18 95 0 131/81(108) NSR 0 (11) 10(A) , No pain 16:45:25 64 14 93 39.8 118/67(82) NSR 0 (11) 10(A) , No pain 16:49:41 59 19 95 34.6 105/62(78) NSR 0 (11) 10(A) , No pain 16:53:55 62 17 96 41.4 110/63(87) NSR 0 (11) 10(A) , No pain 16:58:07 58 14 93 35.3 120/74(104) NSR 0 (11) 10(A) , No pain 17:02:13 64 16 97 32.4 115/73(105) NSR 0 (11) 10(A) , No pain 17:06:29 54 29 98 42.1 118/65(91) NSR 0 (11) 10(A) , No pain 17:10:39 62 14 94 39.1 119/72(92) NSR 0 (11) 9(A) , No pain 17:14:53 67 13 96 47.4 130/74(96) NSR 0 (11) 9(A) , No pain 17:19:11 72 12 93 35.3 116/70(95) NSR 0 (11) 9(A) , No pain 17:23:19 72 13 99 42.9 120/76(96) NSR 0 (11) 10(A) , No pain Medications Time Medication Route Dose Verified Delivered Reason Notes Effectiveness by by 16:41:35 0.9% NaCl I.V. 100 Donald Donald Per physician ml/hr Santiago Henderson RN RN 16:41:46 Oxygen etCO2 2 Donald Donald for low 02 sats Nasal l/min Santiago Henderson cannula RN RN 16:41:57 Heparin Flush added 2 Donald Donald used for Bag to bags Santiago Henderson procedure (1000units/500ml field MONTOYA RN NS) 16:42:07 Lidocaine 2% added 20ml Donald Donald for local to vial Lorigan Santiago anesthetic field MONTOYA RN 17:05:01 Fentanyl I.V. 50 aBrry Nielsen for sedation [facility] Param Joseph RN 17:05:52 Versed I.V. 2 mg Barry Nielsen for sedation Param Joseph RN 17:09:02 Versed I.V. 2 mg Barry Nielsen for sedation Param Joseph RN 17:09:07 Fentanyl I.V. 50 Barry Nielsen for sedation mcg Param Joseph RN 17:12:14 Versed I.V. 2 mg Barry Nielsen for sedation Param Joseph RN 17:16:19 Heparin Bolus I.V. 4000 Barry Nielsen for verif ied units Param Joseph RN anticoagulation with dr virgen Procedure Log Time Note 16:24:18 Admit Source: Other 16:24:54 Procedure Status Urgent Heart Cath (IP). 16:24:58 Toby Hidalgo RT(R) sent for patient. Start room use. 16::54 Time tracking: Regular hours (M-F 7:00 - 5:00) 16:25:59 Plan of Care:Hemodynamics will remain stable., Cardiac rhythm will remain stable., Comfort level will be maintained., Respiratory function will remain adequate., Patient/ family verbilizes understanding of procedure., Procedure tolerated without complication., Recovers from procedure without complications.. 16:27:10 Lab Result : BUN 14 mg/dl 16:27:10 Lab Result : Creatinine 1 mg/dl 16:27:10 Lab Result : Troponin l 0.508 ng/ml 16:27:10 Lab Result : CK-MB 2.7 ng/ml 16:27:10 Lab Result : eGFR NONAFRICAN 82.30495 ml/min 16:27:10 Lab Result : Hemoglobin 11.5 g/dl 16:27:10 Lab Result : Hematocrit 36.9 % 16:27:15 Lab results completed and on chart. 16:27:47 Stress Test: no; N/A ? 16:30:13 Risk of Mortality: 0.1 16:30:16 Risk of blood transfusion: 1.0 16:30:20 Risk of DARRYL: 2.5 16:30:22 Alarms reviewed by R. N. 16:30:23 Sharps counted by scrub and verified by R.N. 16:30:42 Pre-procedure instructions explained to patient. 16:30:42 Pre-op teaching completed and patient verbalized understanding. 16:30:45 Family in patients room. 16:30:47 Patient NPO since Midnight. 16:31:05 Patient allergic to Other allergyLisinopril 16:31:09 Is the patient allergic to Iodine/contrast media? No. 16:31:12 Was the patient premedicated? Yes 16:31:14 Is patient on blood thinner?Yes 16:31:18 ACC The patient was administered the following blood thiners within the last 24 hours: ACCPlavix 16:31:22 Patient diabetic? No. 16:31:25 If diabetic: On Metformin? N/A 16:31:36 Previous problem with sedation/anesthesia? No ? 16:31:40 Snore? Yes 16:31:42 Sleep apnea? No 16:31:43 Deviated septum? No 16:31:44 Opens mouth fully? Yes 16:31:45 Sticks out tongue? Yes 16:31:49 Airway obstruction? No ? 16:31:54 Dentures? Yes in tight 16:32:09 Patient received from Med II to CCL 1 Alert and oriented. Tansferred to table in Supine position. 16:34:09 Signed procedure consent form obtained from patient. 16:34:10 Warm blankets applied, and emily hugger turned on for patient comfort. 16:34:11 Correct patient and procedure confirmed by team. 16:39:28 IV patent on arrival in left antecubital with 0.9% NaCl at [facility]. 16:39:32 Pre procedure: right dorsailis pedis pulse 2+ Normal; easily identifiable; not easily obliterated 16:39:36 Patient pain scale 2/10 ?. 16:39:43 Right groin area was prepped with chlora-prep and draped in sterile fashion 16:40:00 ECG and BP/O2 sat monitors applied to patient. 16:40:05 Vital chart was started 16:40:31 Arrival Date: 10/09/2019 12:00:00 AM 16:40:41 Insurance Payor : Private health insurance 16:40:55 Patient Height : 73 inches 16:41:02 Patient Weight : 09189.57 lbs 16:41:35 0.9% NaCl 100 ml/hr I.V. was administered by Donald Henderson RN; Per physician; Verbal order read back and verified. 16:41:46 Oxygen 2 l/min etCO2 Nasal cannula was administered by Donald Henderson RN; for low 02 sats; Verbal order read back and verified. 16:41:57 Heparin Flush Bag (1000units/500ml NS) 2 bags added to field was administered by Donald Henderson RN; used for procedure; Verbal order read back and verified. 16:42:07 Lidocaine 2% 20ml vial added to field was administered by Donald Henderson RN; for local anesthetic; Verbal order read back and verified. 16:42:49 Diagnostic Cath Status : Elective 16:42:54 Indication : CAD 16:43:49 Baseline sample Acquired. 16:43:56 Rhythm: sinus rhythm 16:43:58 Full Disclosure recording started 16:44:14 H&P Date Dictated: 10/08/2019 Within 30 days and on chart., New H&P dictated by physician.. 16:44:25 Use device set Femoral Dx 16:44:27 ACIST Syringe (48810) opened to sterile field. 16:44:28 Bag Decanter (2002S) opened to sterile field. 16:44:29 Medline Cath Pack ([id number]) opened to sterile field. 16:44:30 ACIST Hand Control (22715) opened to sterile field. 16:44:31 ACIST Manifold (55235) opened to sterile field. 16:44:33 Tegaderm 4 x 4 (1626W) opened to sterile field. 16:44:34 SHEATH 5FR Yarnell (OVT902) opened to sterile field. 16:44:35 EMERALD Guide Wire (601-467) opened to sterile field. 16:44:44 DIAGNOSTIC Multipack 5Fr catheter set (VE5004) opened to sterile field. 17:04:24 Baseline sample Acquired. 17:04:50 --------ALL STOP TIME OUT------ 17:04:51 Final Timeout: patient, procedure, and site verified with staff and physician. All members of the team are in agreement. 17:04:53 Right groin site verified by team. 17:04:57 Fire Safety Assessment: A--An alcohol-based skin anteseptic being used preoperatively., C--Open oxygen or nitrous oxide is being used., D--An ESU, laser, or fiber-optic light is being used. 17:05:01 Fentanyl 50 mcg I.V. was administered by Buffie Joseph RN; for sedation; Verbal order read back and verified. 17:05:03 Physical assessment completed. ASA score P 2 - A patient with mild systemic disease as per Barry Virgen MD. 17:05:09 2) 60-89 Mildly reduced kidney function, and other findings (as for stage 1) point to kidney disease. 17:05:12 Maximum allowable contrast dose (3.7 X eGFR X 0.75)230 ml. 17:05:18 Sedation plan: IV Moderate Sedation Medication:Versed, Fentanyl 17:05:52 Versed 2 mg I.V. was administered by Morales Joseph RN; for sedation; Verbal order read back and verified. 17:06:26 Procedure started. 17:06:30 Zero performed for pressure channel P1 17:06:42 Local anesthetic to right femoral artery with Lidocaine 2% by Barry Virgen MD.INITIAL ACCESS ONLY 17:07:38 A 5 Fr sheath was inserted into the Right Femoral artery 17:07:47 A MULTIPACK Pigtail 5 Fr catheter was advanced over the wire and used for Procedure. 17:08:03 LV gram done using QURESHI 17:08:10 Injector settings: Ml/sec: 5, Volume: 15, 17:08:23 EF : 40 % 17:08:27 Catheter removed. 17:08:33 A MULTIPACK JL 4.0 5Fr catheter was advanced over the wire and used for Procedure. 17:08:38 LCA angiography performed. 17:09:02 Versed 2 mg I.V. was administered by Morales Joseph RN; for sedation; Verbal order read back and verified. 17:09:07 Fentanyl 50 mcg I.V. was administered by Morales Joseph RN; for sedation; Verbal order read back and verified. 17:09:40 Catheter removed. 17:09:49 A MULTIPACK 3DRC 5Fr catheter was advanced over the wire and used for Procedure. 17:10:04 RCA angiography performed. 17:10:36 ACCDominant side:Right 17:10:37 Catheter removed. 17:10:39 Proceeding to intervention. 17:10:45 INFLATOR Merit BasixCompak (TR6035) opened to sterile field. 17:10:46 SHEATH 6FR Yarnell (XKU690) opened to sterile field. 17:10:51 CHOICE PT Extra Support 182cm wire ([id number]) opened to sterile field. 17:10:55 Holloway Verrata Plus pressure wire (59586M) opened to sterile field. 17:11:04 GUIDE 6FR XBLAD 3.5 catheter ([id number]) opened to sterile field. 17:11:33 6 Fr XBLAD 3.5 guide catheter was inserted over the wire 17:11:59 FFR/IFR wire advanced. 17:12:14 Versed 2 mg I.V. was administered by Morales Joseph RN; for sedation; Verbal order read back and verified. 17:13:21 Wire advanced across lesion. 17:15:53 LMCA lesion measured at .96 with IFR 17:16:00 mLAD lesion measured at .75 with IFR 17:16:19 Heparin Bolus 4000 units I.V. was administered by Morales Joseph RN; for anticoagulation; verified with dr virgen Verbal order read back and verified. 17:17:30 Pre PCI Site: [place] mLAD has 75% stenosis. 17:18:24 Place stent Inflation Number: 1 A COBRA RX 2.5 X 12 Stent was prepped and advanced across the Mid LAD . The stent was deployed at 11 JANETH for 0:00 (min:sec) . 17:18:43 Inflation number: 2 The stent balloon was then re-inflated across the Mid LAD to 13 JANETH for 0:00 (min:sec) . 17:19:18 Wire removed. 17:19:19 Guide catheter removed. 17:19:21 Stent catheter was removed intact over wire. 17:19:23 EXOSEAL 6Fr (EX600) opened to sterile field. 17:19:54 Sheath removed intact; hemostasis achieved with Exoseal to the Right Femoral artery. 17:19:59 Procedure ended.(Physican Out) 17:20:07 Fluoroscopy time 03.80 minutes. 17:20:12 Fluoroscopy dose: 933 mGy 17:20:12 Flurop Dose total: 933 17:20:18 Dose Area Product 47715 mGy/cm. 17:20:23 Contrast amount:Isovue 370 110ml. 17:20:28 Maximum allowable dose exceeded? No. 17:20:29 Sharps counted by scrub and verified by R.N. 17:20:38 Post-op/insertion site Right Femoral artery dressed using a 4 x 4 and Tegaderm. 17:20:46 Post right femoral artery:stable, soft, clean and dry 17:20:49 Post Procedure Pulses reassessed and unchanged 17:20:52 Post procedure: right dorsailis pedis pulse 2+ Normal; easily identifiable; not easily obliterated. 17:20:57 Post-procedure physical assessment completed. ASA score P 2 - A patient with mild systemic disease as per Barry Virgen MD. 17:21:01 Post procedure rhythm: unchanged. 17:21:04 Estimated blood loss: 10 ml 17:21:07 Post procedure instruction explained to patient.Patient verbalizes understanding. 17:21:09 Patient needs reinforcement of post procedure teaching. 17:22:06 Procedure type changed to Cath procedure, Diagnostic procedure, LHC, [facility] w/Coronaries, FFR/IVUS, FFR Initial, FFR Additional, PCI procedure, Coronary Stent, Coronary Stent Initial, Hemochron ACT Test 17:22:52 Procedure and supply charges have been captured, reviewed, submitted and are correct. 17:23:04 ACT drawn and resulted at 208 seconds. (normal therapeutic range 180-240 seconds). 17:23:15 Procedure Complication : No complications 17:23:28 [facility] Findings: MVD- PCI performed (see procedure note) 17:23:31 Operative report dictated upon procedure completion. 17:23:32 See physician's report for complete and final results. 17:23:35 Report given to [facility]. 17:23:39 Patient transfered to [facility] with Bed. 17:25:04 Procedure ended. 17:25:04 Full Disclosure recording stopped 17:25:19 ACC-PCI Only Patient was given prescriptions, or instructed by Barry Virgen MD to start/continue the following medications upon discharge: Plavix 17:25:22 End room use (Document Last) 17:25:40 End room use (Document Last) 17:25:57 End room use (Document Last) Intervention Summary Intervention Notes Time ActionType Lesion and Equipment Action# Pressure Duration Attributes Used 17:18:24 Place stent Mid LAD COBRA RX 1 11 00:00 2.5 X 12 Stent 17:18:43 Reinflate Mid LAD COBRA RX 2 13 00:00 stent 2.5 X 12 balloon Stent Device Usage Item Name Manufacture Quantity Catalog Number Hospital Part Current Minimal Lot# / Charge Number Stock Stock Serial# Code ACIST Syringe Acist 1 50806 601993 053978 258900 20 (02566) Medical Systems Inc Bag Decanter Microtek 1 2001S 813123 98875 395699 5 (2001S) Medical Inc. Medline Cath Medline 1 [id number] 861938 25373 927988 5 Pack ([id number]) ACIST Hand Acist 1 25869 411140 249917 213202 5 Control Medical (93866) Systems Inc ACIST Manifold Acist 1 13866 263745 504478 229137 5 (67826) Medical Systems Inc Tegaderm 4 x 4 3M 1 1626W 270504 721223 743017 5 (1626W) SHEATH 5FR Terumo 1 PVS700 133385 694461 808881 5 Yarnell (CRW176) EMERALD Guide Cardinal 1 502-455 959529 463447 244819 5 Wire (502-455) Health DIAGNOSTIC Cardinal 1 AZ8191 890015 12477 572142 30 Multipack 5Fr Health catheter set (BY0679) MULTIPACK Cardinal 1 105591 5 Pigtail 5 Fr Health catheter MULTIPACK JL Cardinal 1 442360 5 4.0 5Fr Health catheter MULTIPACK 3DRC Cardinal 1 007357 5 5Fr catheter Health INFLATOR Merit Merit 1 QA3603 854220 120552 828856 15 The X Train (BU8335) SHEATH 6FR Terumo 1 ZNI095 166261 182156 553187 40 Yarnell (CTA476) CHOICE PT [place] 1 [id number] 229986 671306 608570 5 Extra Support Scientific 182cm wire ([id number]) Holloway Holloway 1 11368W 331568 185857938 085010 5 Verrata Plus pressure wire (85182V) GUIDE 6FR Cardinal 1 [id number] 924136 581693 411853 10 XBLAD 3.5 Health catheter (99069975) COBRA RX 2.5 X Celonova 1 220801 [id number] 1156607 88 7 [id number] 12 stent Biosciences () EXOSEAL 6Fr Cardinal 1 EX600 899862 067421 854137 10 (EX600) Health Signature Audit Hayden Stage Time Signature Unsigned Intra-Procedure 10/09/2019 Karol Benson 5:25:40 PM RT(R) Intra-Procedure 10/09/2019 Morales Joseph RN 5:25:57 PM Intra-Procedure 10/09/2019 Barry Virgen 5:26:56 PM [facility] [address] [address]
--- NOTE | ~2019-10-08 | OP ---
PATIENT NAME: ALONZO JERNIGAN MEDICAL RECORD: [id number] :65 LOCATION:D.M2 D.2112 ADMISSION DATE:10/08/19 SURGEON: HEATHER SAMUELS MD DATE OF OPERATION: 10/09/2019 PROCEDURES: 1. PTCA stent LAD. 2. IFR LAD. 3. IFR left main. 4. Left heart catheterization. 5. Selective coronary angiography. 6. Left ventriculogram. INDICATION: Non-Q-wave myocardial infarction and coronary artery disease. PROCEDURE IN DETAIL: After informed consent was obtained and after detailed explanation risks, benefits as well as alternative therapies, the patient elected to proceed with angiogram and angioplasty. The right femoral area was prepped and draped in normal sterile fashion. Right femoral artery was cannulated via modified Seldinger technique with placement of 6-Arabic sheath. All catheters exchanged through this sheath. FINDINGS: Left ventriculogram was performed in standard 30-degree QURESHI view, reveals decreased cardiac wall motion, ejection fraction 40%. SELECTIVE CORONARY ANGIOGRAPHY: 1. Left main with angulated questionable stenosis, however, IFR was normal at 0.96. 2. Left anterior descending has 70% to 75% stenosis in the mid vessel. IFR was abnormal at 0.75. 3. Left circumflex has moderate irregularities, but no flow-limiting stenosis. 4. Right coronary has moderate irregularities, but no flow-limiting stenosis. PTCA STENT OF THE LAD: The stent used was a 2.5 x 12 mm Cobra. Result was 0% residual stenosis. OVERALL IMPRESSION: Successful percutaneous transluminal angioplasty stent of the left anterior descending going from 75% initial stenosis with an abnormal IFR to 0% residual. TRANSINT:[id number] Voice Confirmation ID: [id number] DOCUMENT ID: [id number] HEATHER SAMUELS MD CC: [id number] DICTATION DATE: 10/09/191726 IC DESIGN MANAGER: 10/09/19 1821 ADM IN [place] [address] [place] [address]
--- NOTE | 2019-10-08 15:35 | NUR ---
AFTER TRIAGING PATIENT, PT'S STATED THAT PRIOR TO ARRIVAL THEY WERE EATING DINNER. PT STARTED COMPLAINING OF CHEST PAIN. GOT UP FROM TABLE TO TAKE A NITRO, CAME BACK AND SAT AT TABLE, BUT COULDN'T FINISH EATING. HE GOT UP QUICKLY AND WENT TO RESTROOM AND CLOSED THE DOOR. PT'S HER A "THUMPING" ON THE DOOR SO SHE WENT AND OPENED IT TO FIND PT ON FLOOR "CONVULSING WITH HIS EYES KIND OF ROLLED INTO THE BACK OF HIS HEAD. IT JUST LASTED ABOUT A MINUTE AND HE GOT HIMSELF UP, SHOWERED AND READY TO COME HERE."
--- NOTE | 2019-10-08 15:40 | NUR ---
NITRO X 2 PRIOR TO ARRIVAL WITH RELIEF.
[2019-10-08 15:54] LABS: BASOPHILS 0.5 % (0-2); EOSINOPHILS 3.9 % (0-7); HEMATOCRIT 36.7 % (42.0-54.0); HEMOGLOBIN 11.7 g/dL (13.5-17.5); IMMATURE GRANULOCYTES 0.2 % (0-5); LYMPHOCYTES 17.4 % (15-50); MCH 25.8 pg (26.0-34.0); MCHC 31.9 g/dL (31.0-37.0); MCV 80.8 fL (80.0-100.0); MEAN PLATELET VOLUME 9.7 fL (7.4-10.4); MONOCYTES 6.3 % (2-11); NEUTROPHILS 71.7 % (40-80); PLATELET COUNT 267 10x3/uL (130-400); RBC 4.54 10x6/uL (4.20-6.10); RDW 16.4 % (11.5-14.5); WBC 9.3 10x3/uL (4.8-10.8)
--- NOTE | 2019-10-08 15:54 | NUR ---
PT TO CT AT THIS TIME
[2019-10-08 16:05] LABS: INR 1.08 (0.85-1.17); PROTIME 13.5 SECONDS (11.6-15.0)
[2019-10-08 16:06] LABS: CALC OSMOLALITY 273 mosm/kg (275-300); CALCIUM 9.5 mg/dL (8.5-10.1); CARBON DIOXIDE 23.6 mmol/L (21.0-32.0); CHLORIDE - SERUM 100 mmol/L (98-107); CREATININE - SERUM 1.2 mg/dL (0.6-1.3); GLUCOSE 119 mg/dL (74-106); POTASSIUM - SERUM 3.3 mmol/L (3.5-5.1); SODIUM 136 mmol/L (136-145); UREA NITROGEN 16 mg/dL (7-18); eGFR NON AFRICAN AMERICAN 67 mL/min (90-120)
[2019-10-08 16:22] LABS: ALBUMIN 3.9 g/dL (3.4-5.0); ALKALINE PHOSPHATASE 90 U/L (46-116); ALT (SGPT) 53 U/L (10-68); CREATINE KINASE 223 UL (21-232); MAGNESIUM - SERUM 1.6 mg/dL (1.8-2.4); PROTEIN - SERUM 8.3 g/dL (6.4-8.2)
[2019-10-08 16:25] LABS: TROPONIN-I < 0.017 ng/mL (0.000-0.060)
[2019-10-08 16:30] VITALS: BP 137/73
[2019-10-08 17:30] VITALS: BP 144/75
[2019-10-08 18:52] LABS: APPEARANCE CLEAR (CLEAR); BILIRUBIN NEGATIVE (NEGATIVE); COLOR YELLOW (YELLOW); GLUCOSE NEGATIVE (NEGATIVE); KETONE NEGATIVE (NEGATIVE); NITRITE NEGATIVE (NEGATIVE); PROTEIN NEGATIVE (NEGATIVE); UROBILINOGEN NORMAL (NORMAL)
[2019-10-08 19:07] LABS: UDS - AMPHET NEGATIVE QUAL (NEGATIVE); UDS - BARB NEGATIVE QUAL (NEGATIVE); UDS - BENZO NEGATIVE QUAL (NEGATIVE); UDS - COCAINE NEGATIVE QUAL (NEGATIVE); UDS - OPIATE NEGATIVE QUAL (NEGATIVE); UDS - PCP NEGATIVE QUAL (NEGATIVE); UDS - THC POSITIVE QUAL (NEGATIVE)
--- NOTE | 2019-10-08 19:30 | NUR ---
RECEIVED FROM ER, PT IS A&OX4, MEDS AND HISTORY COMPLETE, IV-L.HAND-SL, PLACED ON TELEMTRY, BED IS LOW, SRX2, CALL LIGHT IN REACH, WILL CONTINUE PLAN OF CARE
[2019-10-08 19:52] VITALS: BP 131/65; BMI 30.4
[2019-10-08 22:28] LABS: CKMB 2.7 U/L (0.0-3.6); CREATINE KINASE 217 UL (21-232)
[2019-10-08 22:34] LABS: TROPONIN-I 0.173 ng/mL (0.000-0.060)
--- NOTE | 2019-10-08 22:54 | NUR ---
NOTIFIED ARVIND NELSON. WAS 0.173, WAS TOLD JUST KEEP HIM NPO
[2019-10-09] VITALS: BP 124/80
[2019-10-09 04:00] VITALS: BP 132/74
[2019-10-09 04:22] LABS: BASOPHILS 0.6 % (0-2); EOSINOPHILS 6.3 % (0-7); HEMATOCRIT 36.9 % (42.0-54.0); HEMOGLOBIN 11.5 g/dL (13.5-17.5); IMMATURE GRANULOCYTES 0.1 % (0-5); LYMPHOCYTES 22.7 % (15-50); MCH 25.5 pg (26.0-34.0); MCHC 31.2 g/dL (31.0-37.0); MCV 81.8 fL (80.0-100.0); MEAN PLATELET VOLUME 10.4 fL (7.4-10.4); NEUTROPHILS 61.3 % (40-80); PLATELET COUNT 288 10x3/uL (130-400); RBC 4.51 10x6/uL (4.20-6.10); RDW 16.6 % (11.5-14.5); WBC 8.9 10x3/uL (4.8-10.8)
[2019-10-09 05:50] LABS: ALBUMIN 3.5 g/dL (3.4-5.0); ALKALINE PHOSPHATASE 83 U/L (46-116); ALT (SGPT) 53 U/L (10-68); BILIRUBIN - TOTAL 0.48 mg/dL (0.2-1.3); CALC OSMOLALITY 276 mosm/kg (275-300); CALCIUM 8.5 mg/dL (8.5-10.1); CARBON DIOXIDE 26.1 mmol/L (21.0-32.0); CHLORIDE - SERUM 103 mmol/L (98-107); CREATINE KINASE 214 UL (21-232); GLUCOSE 100 mg/dL (74-106); POTASSIUM - SERUM 3.7 mmol/L (3.5-5.1); PROTEIN - SERUM 7.7 g/dL (6.4-8.2); SODIUM 138 mmol/L (136-145); UREA NITROGEN 14 mg/dL (7-18); eGFR NON AFRICAN AMERICAN 83 mL/min (90-120)
[2019-10-09 05:51] LABS: TROPONIN-I 0.508 ng/mL (0.000-0.060)
--- NOTE | 2019-10-09 07:20 | NUR ---
RECIEVE REPORT. ALERT AND ORIENTED X4. RESTING IN BED. SINUS RYTHM ON TELEMETRY. DENIES ANY NEEDS AT THIS TIME. CONTINUE PLAN OF CARE AND SAFETY PRECAUTIONS.
[2019-10-09 08:17] VITALS: BP 136/75
[2019-10-09 11:43] VITALS: BP 125/71
[2019-10-09 13:26] VITALS: Ht 185.4 cm; Wt 104.3 kg
[2019-10-09 15:04] VITALS: BP 138/74
--- NOTE | 2019-10-09 17:45 | NUR ---
RETURNS TO ROOM VIA BED. HOB FLAT FOR NEXT 4 HOURS. AROUSES TO STIMULI. FAMILY AT BEDSIDE. RT GROIN DRESSING CLEAN DRY INTACT. FREE FROM HEMATOMA. FREE FROM BLEEDING. PULSE +2 BILATERALLY. BP-113/71, HR-54 SINUS GEMINI, O2-95% RA. CONTINUE PLAN OF CARE AND SAFETY PRECAUTIONS.
--- NOTE | 2019-10-09 19:34 | NUR ---
REPORT RECIEVED AND ROUNDING COMPLETE. PATIENT LAYING FLAT IN BED FOLLOWING HIS CATH TODAY. HE HAS TO LAY FLAT UNTIL 2144. PATINET HAS EYES CLOSED BREATHING EVEN AND SHALLOW. PATIENT IS SNORING. PATIENT'S IS AT BEDSIDE. CALL LIGHT WIHT IN REACH AND BED IN LOWEST POSITION.
[2019-10-09 20:00] VITALS: BP 125/59
[2019-10-10] VITALS: BP 107/64
[2019-10-10 04:00] VITALS: BP 117/75
--- NOTE | 2019-10-10 08:08 | NUR ---
RECIEVE REPORT. ALERT AND ORIENTED X4. LAYING IN BED. RT GROIN DRESSING CLEAN DRY INTACT. FREE FROM BLEEDING, FREE FROM HEMATOMA. DENIES ANY NEEDS. CONTINUE PLAN OF CARE AND SAFETY PRECAUTIONS. SINUS RYTHM 72 ON TELEMETRY.
[2019-10-10 08:13] VITALS: BP 165/92
[2019-10-10] MEDS ORDERED: PLAVIX75 MG PO (08:25)
[2019-10-10] MEDS ORDERED: PRAVACHOL20 MG PO (08:26)
[2019-10-10] MEDS ORDERED: BAYER CHEWABLE81 MG PO (09:01)
--- NOTE | 2019-10-10 09:09 | NUR ---
I CALLED WRITTEN SCRIPTS OF PLAVIX AND PRAVACHOL TO [facility]. SPOKE TO UZMA-PHARMACIST. GAVE 6 REFILLS TO EACH PER DR SAMUELS. CHANGED TO PRAVACHOL 20 MG AT HS.
[2019-10-10] MEDS ORDERED: PRAVASTATIN SOD10 MG PO (09:12)
--- NOTE | 2019-10-10 10:07 | NUR ---
ALERT AND ORIENTED X4. SITTING UP IN CHAIR. DISCHARGE INSTRUCTIONS GIVEN VERBALLY AND WRITTEN. DISCHARGE PAPERS SIGNED ON CHART. STENT CARD PROVIDED. DC LT HAND IV TIP INTACT. ESCORT TO RIDE VIA WHEELCHAIR. REMAINS FREE FROM INJURY.
--- NOTE | 2019-10-11 06:57 | MORECARE ---
CASE MANAGEMENT DISCHARGE SUMMARY PATIENT: ALONZO JERNIGAN UNIT: [id number] ADM DATE: 10/08/19 AGE: 54 : 65 SEX: M ROOM/BED: D.2112 AUTHOR: MOISÉS WU PHYSICIAN: REFERRING PHYSICIAN: LATESHA HENNING MD DATE OF SERVICE: 10/11/19 Discharge Plan Patient Name: ALONZO JERNIGAN [facility] [facility] 1965 Planned Disposition: Home Anticipated Discharge Date: 10/10/19 Discharge Date: 10/10/2019 Expected LOS: 2 Initial Reviewer: [email or web address] Initial Review Date: 10/11/2019 Generated: 10/11/19 7:57 am Patient Name: ALONZO JERNIGAN Page [phone] at 0657 All edits/amendments must be made on the electronic document DICTATION DATE: 10/11/1956 AIRCRAFT SEAT UPHOLSTERER: JULIANE 10/11/19 0656 RPT#: [id number] DC DATE:10/10/19 STATUS: DIS IN [facility] [address] [place] [address] END OF REPORT
== END 2019-10-10 10:09 | disposition home or self-care (01) ==
LOC: D.ER 15:24 → D.M2 17:58 → OBSVTIME 18:00 → D.M2 10-10 10:09
PROVIDERS: Family Medicine; ADMIT Internal Medicine Nephrology; ATTEND Internal Medicine Nephrology
DX: I21.4 Non-ST elevation (NSTEMI) myocardial infarction (principal); I25.110 Atherosclerotic heart disease of native coronary artery with unstable angina pectoris; D64.9 Anemia, unspecified; E87.6 Hypokalemia; E83.42 Hypomagnesemia; I10 Essential (primary) hypertension; K21.9 Gastro-esophageal reflux disease without esophagitis; F41.8 Other specified anxiety disorders; Z72.89 Other problems related to lifestyle

== ENCOUNTER 2020-04-25 20:31 | Observation (INO) | payer OTHER ==
[~2020-04-25] VITALS: Ht 188 cm; Wt 102.3 kg
--- NOTE | ~2020-04-25 | CN ---
PATIENT NAME:ALONZO JERNIGAN MEDICAL RECORD: [id number] : 65 LOCATION:D. D.2119 ADMIT DATE: 04/25/20 ACCOUNT: [id number] CONSULTING PHYSICIAN: OPAL LANDRY MD REFERRING PHYSICIAN: GELACIO SALINAS DO DATE OF CONSULTATION: 04/26/2020 HISTORY OF PRESENT ILLNESS: A 54-year-old gentleman with a known history of coronary artery disease, status post intervention, has a history of hypertension, hyperlipidemia as well, again onset on Wednesday. However, rapidly progressing symptoms with chest pressure and tightness reminiscent of his angina, been doing well prior to this. We are asked to see him concerning his cardiovascular status. PAST MEDICAL HISTORY: Includes; 1. History of hypertension. 2. Hyperlipidemia. 3. Coronary artery disease as described above. ALLERGIES: LISINOPRIL CAUSES A COUGH. SOCIAL HISTORY: Nonsmoker, social drinker. Easily takes care of all his ADLs. No set exercise program, stays quite active. REVIEW OF SYSTEMS: The patient reports easy bruising but reports no swollen glands. The patient reports no fever, no night sweats, no significant weight gain, no significant weight loss. No significant exercise tolerance. The patient reports no dry eyes, no irritation, no vision change. Patient reports no difficulty hearing and no ear pain. Patient reports no frequent nose bleeds or nose and sinus problems. Patient reports on arm pain on exertion. No shortness of breath while lying down. No history of heart murmur. Patient reports no cough, no wheezing or coughing up blood. Patient reports no abdominal pain, no vomiting. Normal appetite. No diarrhea and not vomiting blood. No nausea and no constipation. Patient reports no incontinence. No difficulty urinating. No hematuria. No increased frequency. Patient reports no muscle aches. No weakness, no arthralgias, no back pain. No swelling of the extremities. Patient reports no abnormal mole, no jaundice, no rashes. Reports no loss of consciousness. No weakness and no numbness. No seizures, dizziness, or headaches. The patient reports no depression, no sleep disturbance, feeling safe in a relationship and no alcohol abuse. Patient reports on fatigue. Reports no runny nose or sinus pressure. No itching, no hives, and no frequent sneezing. PHYSICAL EXAMINATION: GENERAL: Well developed, well nourished, no acute distress, appears stated age. VITAL SIGNS: Blood pressure 116/59, pulse 51 and regular. HEENT: Normocephalic, atraumatic. NECK: No bruits noted. HEART: Regular. A II/ systolic ejection murmur. LUNGS: Good air excursion. ABDOMEN: Soft, nontender. EXTREMITIES: Pulse 2+ with no edema. DIAGNOSTIC DATA: EKG shows minor nonspecific ST-T changes. CONSULT REPORT [id number] ALONZO JERNIGAN IMPRESSION: Acute coronary artery syndrome, known history of coronary artery disease, multiple risk factors. PLAN: For angiography, intervention based on the above. TRANSINT:[id number] Voice Confirmation ID: [id number] DOCUMENT ID: [id number] OPAL LANDRY MD CC: [id number] DICTATION DATE: 04/26/20835 ACOUSTIC ENGINEER: 04/26/20 1624 DIS IN 04/26/20 [facility] [address] [place] [address]
--- NOTE | ~2020-04-25 | OP ---
PATIENT NAME: ALONZO JERNIGAN MEDICAL RECORD: [id number] :65 LOCATION:D.M2 D.2119 ADMISSION DATE:04/25/20 SURGEON: OPAL LANDRY MD DATE OF OPERATION: 04/26/2020 PROCEDURE: Left heart catheterization, selective coronary angiography, right femoral artery approach. CATHETERS: A 5-Mongolian sheath, 5/4 left and right Irina, 5/4 pig. The procedure was well tolerated. The patient returned to the elaine, sheath removed. ExoSeal device placed. FINDINGS: Left ventriculography in 30-degree QURESHI view: Normal wall motion, normal systolic function. CORONARY ANATOMY: LEFT MAIN: Left main is free of disease. LAD: An area of previous stenting is widely patent. No progression of ute disease. No evidence of restenosis. CIRCUMFLEX: Free of disease. RIGHT CORONARY ARTERY: The area of previous stenting is widely patent. No progression of ute disease or restenosis. IMPRESSION: Widely patent stents. No progression of ute disease. Left ventricular function remains normal. Continue risk factor modification. TRANSINT:[id number] Voice Confirmation ID: [id number] DOCUMENT ID: [id number] OPAL LANDRY MD CC: [id number] DICTATION DATE: 04/26/20 1430 MEDICAL COLLECTIONS REPRESENTATIVE: 04/26/20 2322 DIS IN 04/26/20 [facility] [address] [place] [id number]
--- NOTE | ~2020-04-25 | HEMODYNAMI ---
PATIENT:ALONZO JERNIGAN MEDICAL RECORD: [id number] : 65 [facility]19 [id number] ADMISSION DATE: 04/25/20 Generatedon:04/26/202014:24 Patient name: ALONZO JERNIGAN Patient #: [id number] SSN: [id number] : 1965 Date of study: 04/26/2020 Page: Of Hemodynamic Procedure Report Patient Data Patient Demographics Procedure consent was obtained First Name: ALONZO Gender: Male Last Name: DELON : 1965 Middle Initial: R Age: 54 year(s) Patient #: [id number] Race: SSN: [id number] Additional ID: [id number] Contact details Address: [address] State: [place] City: [facility] Zip code: [address] Past Medical History History of disease Date Diagnosis Comments CAD Allergies Allergen Reaction Date Comments Reported Other allergy 09/26/2018 LISINOPRIL Other allergy 10/09/2019 Lisinopril Other allergy 04/26/2020 LISINOPRIL Admission Admission Data Admission Date: 04/25/2020 Admission Time: 21:38 Arrival Date: 04/25/2018 Arrival Time: 0:00 Room #: 2119 Height (in.): 72 BSA: 2.24 (m2) Height (cm.): 182.88 BMI: 30.52 (kg/m2) Weight (lbs.): 225 Weight (kg.): 102.06 Lab Results Lab Result Date: 04/26/2020 Lab Result Time: 0:00 Biochemistry Name Units Result Min Max BUN mg/dl 15 --(--*-)-- 7 18 Creatinine mg/dl 1.2 --(---*)-- 0.6 1.3 eGFR ml/min 67.71570 *-(----)-- 90 120 NONAFRICAN CBC Name Units Result Min Max Hematocrit % 34.3 *-(----)-- 42 54 Hemoglobin g/dl 10.5 *-(----)-- 13.5 17.5 Procedure Procedure Types Cath Procedure Diagnostic Procedure [facility] w/Coronaries Sedation Charges Moderate Sedation up to 15 minutes Procedure Description Procedure Date Procedure Date: 04/26/2020 Procedure Start Time: 14:14 Procedure End Time: 14:23 Procedure Staff Name Function Chinmay Dc MD Performing Physician Nolvia Scherer RT Monitor Radha Gonzalez RT Monitor Nadege Stephen RT Scrub Louise Grullon RN Nurse Indication Angina Procedure Data Cath Procedure Fluoroscopy Diagnostic fluoroscopy Total fluoroscopy Time: 1.2 time: 1.2 min min Diagnostic fluoroscopy Total fluoroscopy dose: 465 dose: 465 mGy mGy Contrast Material Contrast Material Type Amount (ml) Isovue 300 51 Entry Location Entry Primary Successful Side Size Upsize Upsize Entry Closure Succes sful Closure Location (Fr) 1 (Fr) 2 (Fr) Remarks Device Remarks Femoral Right 5 Fr Exoseal artery Estimated blood loss: 10 ml Diagnostic catheters Device Type Used For End Catheter Placement MULTIPACK JL 4.0 5Fr Procedure catheter MULTIPACK 3DRC 5Fr Procedure catheter MULTIPACK Pigtail 5 Fr Ventriculography catheter Procedure Complications No complications Procedure Medications Medication Administration Route Dosage 0.9% NaCl I.V. 100 ml/hr Oxygen etCO2 Nasal cannula 2 l/min Lidocaine 2% added to field 20 Heparin Flush Bag added to field 2 bags (1000units/500ml NS) Versed I.V. 2 mg Fentanyl I.V. 50 mcg Versed I.V. 2 mg Fentanyl I.V. 50 mcg Hemodynamics Rest BSA: 2.24 (m2) HGB: 10.5 (g/dl) O2 Consumption: Estimated: 257.09 (ml/min) O2 Co nsumption indexed: Estimated:114.77 (ml/min/m) Heart Rate: 60 (bpm) Pressure Samples Time Site Value (mmHg) Purpose Heart Use Rate(bpm) 14:20 LV 101/12,17 Snapshot 47 Gradients Valve Time Site Site Mean SEP/DFP Peak To Heart Use 1 2 (mmHg) (sec/min) Peak Rate (mmHg) (bpm) Aortic 14:20 LV AO 52 Snapshots Pre Cath Intra NCS Post Cath Vital Signs Time Heart Resp SPO2 etCO2 NIBP Rhythm Pain Sedation Rate (ipm) (%) (mmHg) (mmHg) Status Level (bpm) 14:02:59 50 15 96 13.4 122/66(95) SB 0 (11) 10(A) , No pain 14:07:15 54 14 97 35.2 101/71(82) SB 0 (11) 10(A) , No pain 14:11:33 60 15 98 50.2 118/66(82) NSR 0 (11) 10(A) , No pain 14:16:32 48 16 98 45 Measuring SB 0 (11) 10(A) , No pain 14:16:44 46 16 98 49.5 114/64(76) SB 0 (11) 10(A) , No pain 14:21:07 54 15 98 48.7 128/61(82) SB 0 (11) 10(A) , No pain Medications Time Medication Route Dose Verified Delivered Reason Notes Eff ectiveness by by 14:01:55 0.9% NaCl I.V. 100 Chinmay Louise used for ml/hr Dao Mitchel procedure MD MONTOYA 14:02:01 Oxygen etCO2 2 Chinmay Louise used for Nasal l/min [facility] procedure cannula MD MONTOYA 14:02:06 Lidocaine 2% added 20ml Chinmay Chinmay for local to vial Count Includes [facility] anesthetic field MD MILLER 14:02:11 Heparin Flush added 2 Chinmay Chinmay used for Bag to bags Count Includes [facility] procedure (1000units/500ml field MD MILLER NS) 14:11:25 Versed I.V. 2 mg Chinmay Louise for DaoOmari Grullon sedation MD MONTOYA 14:11:29 Fentanyl I.V. 50 Chinmay Louise for mcg DaoOmari Grullon sedation MD MONTOYA 14:16:07 Fentanyl I.V. 50 Chinmay Louise for mcg Dao Mitchel sedation MD MONTOYA 14:16:58 Versed I.V. 2 mg Chinmay Louise for Dao Mitchel sedation MD MONTOYApatient relations manager Log Time Note 13:40:51 Informed consent obtained and on chart 13:41:14 Procedure Status Urgent Heart Cath (IP). 13:41:20 Time tracking: Regular hours (M-F 7:00 - 5:00) 13:41:25 Plan of Care:Hemodynamics will remain stable., Cardiac rhythm will remain stable., Comfort level will be maintained., Respiratory function will remain adequate., Patient/ family verbilizes understanding of procedure., Procedure tolerated without complication., Recovers from procedure without complications.. 13:43:48 Radha Gonzalez RT(R) sent for patient. Start room use. 13:45:45 H&P Date Dictated: 04/25/2020 ER History on chart.. 13:45:56 Patient allergic to Other allergyLISINOPRIL 13:46:23 Lab Result : BUN 15 mg/dl 13:46:23 Lab Result : eGFR NONAFRICAN 67.84074 ml/min 13:46:23 Lab Result : Creatinine 1.2 mg/dl 13:46:23 Lab Result : Hematocrit 34.3 % 13:46:23 Lab Result : Hemoglobin 10.5 g/dl 13:47:35 Indication : Angina 13:47:54 Patient Weight : 225 lbs 13:47:59 Patient Height : 72 inches 13:48:02 Arrival Date: 04/25/2018 12:00:00 AM 13:57:33 Patient received from Med II to CCL 1 Alert and oriented. Tansferred to table in Supine position. 13:57:33 Warm blankets applied, and emily hugger turned on for patient comfort. 13:57:34 Correct patient and procedure confirmed by team. 13:57:34 ECG and BP/O2 sat monitors applied to patient. 14:01:47 Vital chart was started 14:01:48 Baseline sample Acquired. 14:01:50 Full Disclosure recording started 14:01:53 Is the patient allergic to Iodine/contrast media? No. 14:01:55 0.9% NaCl 100 ml/hr I.V. was administered by Louise Grullon RN; used for procedure; Verbal order read back and verified. 14:01:56 Was the patient premedicated? Yes 14:02:01 Oxygen 2 l/min etCO2 Nasal cannula was administered by Louise Grullon RN; used for procedure; Verbal order read back and verified. 14:02:01 Is patient on blood thinner?No 14:02:06 Lidocaine 2% 20ml vial added to field was administered by Chinmay Dc MD; for local anesthetic; Verbal order read back and verified. 14:02:06 Patient diabetic? No. 14:02:09 Snore? Yes 14:02:10 Sleep apnea? Yes 14:02:11 Heparin Flush Bag (1000units/500ml NS) 2 bags added to field was administered by Chinmay Dc MD; used for procedure; Verbal order read back and verified. 14:02:17 Dentures? Yes OUT 14:02:22 Patient pain scale 2/10 ?. 14:02:30 IV patent on arrival in right hand with 0.9% NaCl at [facility]. 14:02:37 Lab results completed and on chart. 14:02:42 Right groin area was prepped with chlora-prep and draped in sterile fashion 14:02:44 Sharps counted by scrub and verified by R.N. 14:03:55 Physician arrived 14:03:55 --------ALL STOP TIME OUT------ 14:09:24 Final Timeout: patient, procedure, and site verified with staff and physician. All members of the team are in agreement. 14:09:25 Right groin site verified by team. 14:09:29 Fire Safety Assessment: A--An alcohol-based skin anteseptic being used preoperatively., C--Open oxygen or nitrous oxide is being used., D--An ESU, laser, or fiber-optic light is being used. 14:09:33 Physical assessment completed. ASA score P 3 - A patient with severe systemic disease as per Chinmay Dc MD. 14:09:46 2) 60-89 Mildly reduced kidney function, and other findings (as for stage 1) point to kidney disease. 14:10:21 Sedation plan: IV Moderate Sedation Medication:Versed, Fentanyl 14:10:24 Maximum allowable contrast dose (3.7 X eGFR X 0.75)169 ml. 14:10:27 Use device set Femoral Dx 14:10:29 ACIST Syringe (52939) opened to sterile field. 14:10:29 Bag Decanter (2002) opened to sterile field. 14:10:30 Medline Cath Pack ([id number]) opened to sterile field. 14:10:31 ACIST Hand Control (65168) opened to sterile field. 14:10:31 ACIST Manifold (03013) opened to sterile field. 14:10:32 DIAGNOSTIC Multipack 5Fr catheter set ([id number]) opened to sterile field. 14:10:33 Tegaderm 4 x 4 (1626W) opened to sterile field. 14:10:34 SHEATH 5FR [place] (VWS715) opened to sterile field. 14:10:35 EMERALD Guide Wire (413-513) opened to sterile field. 14:10:39 Zero performed for pressure channel P1 14:11:25 Versed 2 mg I.V. was administered by Louise Grullon RN; for sedation; Verbal order read back and verified. 14:11:29 Fentanyl 50 mcg I.V. was administered by Louise Gurllon RN; for sedation; Verbal order read back and verified. 14:14:15 Procedure started. 14:14:24 Local anesthetic to right femoral artery with Lidocaine 2% by Chinmay Dc MD.INITIAL ACCESS ONLY 14:14:38 A 5 Fr sheath was inserted into the Right Femoral artery 14:15:46 A MULTIPACK JL 4.0 5Fr catheter was advanced over the wire and used for Procedure. 14:15:51 LCA angiography performed. 14:16:07 Fentanyl 50 mcg I.V. was administered by Louise Grullon RN; for sedation; Verbal order read back and verified. 14:16:58 Versed 2 mg I.V. was administered by Louise Grullon RN; for sedation; Verbal order read back and verified. 14:18:22 Catheter removed. 14:18:29 A MULTIPACK 3DRC 5Fr catheter was advanced over the wire and used for Procedure. 14:18:36 RCA angiography performed. 14:18:55 Catheter removed. 14:19:02 A MULTIPACK Pigtail 5 Fr catheter was advanced over the wire and used for Ventriculography. 14:19:06 LV angiography performed. 14:19:11 LV gram done using QURESHI 14:19:16 EF : 55 % 14:20:55 EXOSEAL 5Fr (EX500) opened to sterile field. 14:21:00 Catheter removed. 14:21:10 Sheath removed intact; hemostasis achieved with Exoseal to the Right Femoral artery. 14:21:41 Procedure ended.(Physican Out) 14:21:51 Fluoroscopy time 01.20 minutes. 14::56 Fluoroscopy dose: 465 mGy 14:21:56 Flurop Dose total: 465 14:22: Dose Area Product 80677 mGy/cm. 14:22:25 Contrast amount:Isovue 300 51ml. 14:22:27 Maximum allowable dose exceeded? No. 14:22:29 Insertion/operative site no bleeding no hematoma. 14:22:32 Post-op/insertion site Right Femoral artery dressed using a 4 x 4 and Tegaderm. 14:22:34 Post Procedure Pulses reassessed and unchanged 14:22:37 Post-procedure physical assessment completed. ASA score P 2 - A patient with mild systemic disease as per Chinmay Dc MD. 14:22:40 Post procedure rhythm: unchanged. 14:22:44 Estimated blood loss: 10 ml 14:23:00 Procedure type changed to Cath procedure, Diagnostic procedure, LHC, [facility] w/Coronaries, Sedation Charges, Moderate Sedation up to 15 minutes 14:23:01 Procedure and supply charges have been captured, reviewed, submitted and are correct. 14:23:23 Procedure Complication : No complications 14:23:26 Vital chart was stopped 14:23:28 [facility] Findings: mild to moderate CAD (<70%) 14:23:33 Report given to Med II. 14:23:37 Patient transfered to Med II with Bed. 14:23:43 Procedure ended. 14:23:43 Full Disclosure recording stopped 14:23:47 End room use (Document Last) 14:23:47 End room use (Document Last) 14:24:07 End room use (Document Last) 14:24:25 End room use (Document Last) Device Usage Item Name Manufacture Quantity Catalog Hospital Part Current Minimal L ot# / Number Charge Number Stock Stock Serial# Code ACIST Acist 1 25065 624853 125355 641782 20 Syringe Medical (02697) Systems Inc Bag Microtek 1 582335 38482 704683 5 Decanter Medical Inc. () Medline Medline 1 [id number] 674998 15814 381428 5 Cath Pack ([id number]) ACIST Hand Acist 1 50461 341751 279355 255367 5 Control Medical (33183) Systems Inc ACIST Acist 1 24398 270828 841218 337902 5 Manifold Medical (41397) Systems Inc DIAGNOSTIC Cardinal 1 [id number] 308980 25033 211119 30 [facility] 5Fr catheter set (BV1394) Tegaderm 4 3M 1 1626W 851976 310896 448333 5 x 4 (1626W) SHEATH 5FR Terumo 1 GBA718 031688 213147 142973 5 [place] (WMA784) EMERALD Cardinal 1 502-455 037633 721910 189564 5 Guide Wire [facility] (768-512) MULTIPACK Cardinal 1 509064 5 JL 4.0 5Fr Health catheter MULTIPACK Cardinal 1 946051 5 3DRC 5Fr Health catheter MULTIPACK Cardinal 1 480966 5 Pigtail 5 Health Fr catheter EXOSEAL 5Fr Cardinal 1 EX500 380335 737297 409785 10 (EX500) Health Signature Audit [place] Stage Time Signature Unsigned Intra-Procedure 04/26/2020 Radha Gonzalez 2:24:08 PM RT(R) Intra-Procedure 04/26/2020 Louise Grullon 2:24:25 PM RN Intra-Procedure 04/26/2020 Chinmay Aguilera 2:24:40 PM Omari [address] [id number] [place] [address]
[~2020-04-25 20:31] MED LIST changes: +PRAVACHOL20 MG PO; +PRAVASTATIN SOD10 MG PO
--- NOTE | 2020-04-25 20:48 | NUR ---
PT RATES PAIN 7/10. GIVEN ONE SL NITRO AT THIS TIME
[2020-04-25 20:51] VITALS: BP 149/78
--- NOTE | 2020-04-25 20:53 | NUR ---
PT RATES PAIN 6/10. GIVEN ONE SL NITRO AT THIS TIME.
[2020-04-25 20:54] LABS: BASOPHILS 0.9 % (0-2); EOSINOPHILS 6.4 % (0-7); HEMATOCRIT 37.4 % (42.0-54.0); HEMOGLOBIN 11.9 g/dL (13.5-17.5); IMMATURE GRANULOCYTES 0.1 % (0-5); LYMPHOCYTES 22.9 % (15-50); MCHC 31.8 g/dL (31.0-37.0); MCV 81.7 fL (80.0-100.0); MEAN PLATELET VOLUME 9.9 fL (7.4-10.4); MONOCYTES 4.3 % (2-11); NEUTROPHILS 65.4 % (40-80); PLATELET COUNT 263 10x3/uL (130-400); RBC 4.58 10x6/uL (4.20-6.10); RDW 16.6 % (11.5-14.5)
[2020-04-25 21:04] LABS: APTT 27.7 SECONDS (22.8-39.4); INR 0.98 (0.85-1.17)
[2020-04-25 21:05] LABS: CALC OSMOLALITY 279 mosm/kg (275-300); CALCIUM 8.1 mg/dL (8.5-10.1); CARBON DIOXIDE 29.2 mmol/L (21.0-32.0); CHLORIDE - SERUM 104 mmol/L (98-107); CREATININE - SERUM 1.2 mg/dL (0.6-1.3); GLUCOSE 147 mg/dL (74-106); POTASSIUM - SERUM 3.6 mmol/L (3.5-5.1); SODIUM 138 mmol/L (136-145); UREA NITROGEN 15 mg/dL (7-18); eGFR NON AFRICAN AMERICAN 67 mL/min (90-120)
[2020-04-25 21:17] LABS: ALBUMIN 3.6 g/dL (3.4-5.0); ALKALINE PHOSPHATASE 76 U/L (30-120); ALT (SGPT) 49 U/L (10-68); BILIRUBIN - TOTAL 0.23 mg/dL (0.2-1.3); CREATINE KINASE 209 UL (21-232); PRO BNP 41 pg/mL (0-125); PROTEIN - SERUM 7.1 g/dL (6.4-8.2); TROPONIN-I < 0.017 ng/mL (0.000-0.060)
[2020-04-25 21:30] VITALS: BP 122/63
[2020-04-25] MEDS ORDERED: NORVASC10 MG PO (22:31)
[2020-04-26 00:24] VITALS: BP 123/67; Ht 188 cm; Wt 102.3 kg
[2020-04-26 04:00] VITALS: BP 116/59
--- NOTE | 2020-04-26 07:15 | NUR ---
RECEIVED PT IN BED EYES CLOSED RESP UNLABORED SKIN W/D COLOR WNL WILL CONTINUE MONITOR NAD NOTED
[2020-04-26 08:00] VITALS: BP 129/66
[2020-04-26 08:22] LABS: BASOPHILS 0.9 % (0-2); EOSINOPHILS 5.8 % (0-7); HEMATOCRIT 34.3 % (42.0-54.0); HEMOGLOBIN 10.5 g/dL (13.5-17.5); IMMATURE GRANULOCYTES 0.1 % (0-5); LYMPHOCYTES 27.4 % (15-50); MCH 25.2 pg (26.0-34.0); MCHC 30.6 g/dL (31.0-37.0); MCV 82.3 fL (80.0-100.0); MEAN PLATELET VOLUME 10.1 fL (7.4-10.4); MONOCYTES 6.8 % (2-11); PLATELET COUNT 239 10x3/uL (130-400); RBC 4.17 10x6/uL (4.20-6.10); RDW 16.7 % (11.5-14.5); WBC 6.9 10x3/uL (4.8-10.8)
[2020-04-26 08:46] LABS: ANION GAP 10.6 mmol/L (8-16); CALCIUM 7.7 mg/dL (8.5-10.1); CARBON DIOXIDE 28.3 mmol/L (21.0-32.0); CHOL - HDL RATIO 4.7 ratio (2.3-4.9); CREATININE - SERUM 1.2 mg/dL (0.6-1.3); LDL-HDL RATIO 3.1 ratio (1.5-3.5); POTASSIUM - SERUM 3.9 mmol/L (3.5-5.1)
[2020-04-26 12:00] VITALS: BP 110/60
--- NOTE | 2020-04-26 14:46 | NUR ---
RECEIVED PT BACK FROM [facility] VIA BED VSS DRSG TO RT GROIN C/D/I PPPX4 ASHISH S/S OF BLEEDING NAD NOTED
--- NOTE | 2020-04-26 15:15 | NUR ---
PT REFUSED ALL MEDS AFTER HEART CATH STATED WOULD TAKE MEDS WHEN HE GOT HOME
--- NOTE | 2020-04-26 17:50 | NUR ---
REVIEWED DISCHARGE INSTRUCTIONS WITH PT STATES UNDERSTANDING COPY GIVENDCD SALINE LOCK TO RT HAND WITH IV CATHETER INTACT SITE FREE OF REDNESS OR EDEMA PT DISCHARGED HOME IN STABLE CONDITION LEFT UNIT VIA W/C WITH ALL PERSONAL BELONGINGS
== END 2020-04-26 17:50 | disposition home or self-care (01) ==
LOC: D.ER 20:31 → D.M2 21:38 → OBSVTIME 22:09 → D.M2 04-26 17:50
PROVIDERS: Family Medicine; Internal Medicine Interventional Cardiology; ADMIT Family Medicine; ATTEND Family Medicine
DX: I25.110 Atherosclerotic heart disease of native coronary artery with unstable angina pectoris (principal); D50.9 Iron deficiency anemia, unspecified; I10 Essential (primary) hypertension; E78.5 Hyperlipidemia, unspecified; K21.9 Gastro-esophageal reflux disease without esophagitis; M19.90 Unspecified osteoarthritis, unspecified site; F41.8 Other specified anxiety disorders; G89.29 Other chronic pain; F12.90 Cannabis use, unspecified, uncomplicated; R73.03 Prediabetes